=== PATIENT | male | born 1980 | race Caucasian/White ===

== ENCOUNTER 2017-01-20 18:21 | Emergency (ER) | payer MEDICAID, OTHER ==
[2017-01-20] MEDS ORDERED: CLINDAMYCIN PHOSPHATE 150 MG/ML VIAL IM ONE (20:00)
[2017-01-20] MEDS ORDERED: KETOROLAC TROMETHAMINE 60 MG/2 ML VIAL IM ONE ×2 (20:00→20:31)
--- OUTSIDE RECORDS SUMMARY | 2017-01-20 20:12 | XMS REPORT | Continuity of Care Document ---
:1980 Author Organization [facility] ([facility]) Address [address] [place] [address] Phone [phone] Care Team Providers Name Role Phone Provider, No-Primary Care Primary Care Provider Unavailable Source Comments This disclosure is being made pursuant to the Care Everywhere program, applicable federal and state laws, and may not contain all informaitonavailable regarding this patient.[facility] ([facility]) Active Allergies and Adverse Reactions Not on File Current Medications Not on file Active Problems Not on file Social History Tobacco Use Types Packs/Day Years Used Date Never Assessed Plan of Care Health Maintenance Due Date Last Done Comments Hepatitis B Vaccine (1 of 3 - Primary Series) 1978 Tdap Vaccine 1989 Lipid Disorder Screening 1996 MMR Vaccine 1996 Td Vaccine 1996 Influenza Vaccine: Seasonal (#1) 05/20/2016 Results from Last 3 Months Not on file
--- NOTE | 2017-01-20 20:20 | ERNOTE ---
ENT HPI Date of Service: 01/20/17 Time Seen by Provider: 01/20/17 19:53 Source: patient Exam Limitations: no limitations - Immun/Allergies/Home Medications Immunizations: IMMUNIZATION HX Immunizations Up to Date Yes History of Influenza Vaccine No Hx Pneumococcal Vaccination No Allergies/Adverse Reactions: Allergies Allergy/AdvReac Type Severity Reaction Status Date / Time No Known Allergies Allergy Verified 01/20/17 18:54 Home Medications: HOME MEDICATIONS Clindamycin HCl [Cleocin HCl] 300 mg PO Q6H #40 capsule 01/20/17 [Last Taken Unknown] Naproxen [Naprosyn] 500 mg PO BID PRN #60 tab 01/20/17 [Last Taken Unknown] - History of Present Illness Narrative: Pt. comes in with c/o L maxillary pain from cavities. Pt. states taht the pain developed 3 days ago and has been taking tylenol for the pain and it was tolerable with this until today when the pain became intollerable. Pt. denies any SOB, CP, NVD, numbness, tingling, sinus pain, and pressure. Review of Systems - Review of Systems Constitutional: Present: no symptoms reported. Absent: fever, chills, weakness , fatigue, malaise EYE: Present: no symptoms reported ENT: Present: other - L maxillary dental pain. Absent: nose pain, nose congestion, nasal drainage, sore throat Respiratory: Present: no symptoms reported. Absent: shortness of breath, cough , wheezing Cardiology: Present: no symptoms reported. Absent: chest pain, palpitations, edema Gastrointestinal/Abdominal: Present: no symptoms reported. Absent: nausea, vomiting, diarrhea Musculoskeletal: Present: no symptoms reported. Absent: back pain, joint pain Skin: Present: no symptoms reported Neurological: Present: no symptoms reported. Absent: headache, dizziness/light- headedness, numbness, tingling All Other Systems: All systems neg except as marked - Patient's Past Medical History Patient History - Medical: No pertinent hx Patient History - Cardiac/Respiratory: No pertinent hx Patient History - Cancer: No Hx of Cancer Patient History - Surgical Procedures: T & A, Other Patient History - Other: None - Social History Living Situations: home Abuse History: No History of abuse Psych History: No pertinent hx Smoking Status: Former smoker Alcohol Use: occasionally Drug Use: none - Immunizations Immunizations Up to Date: Yes Hx Pneumococcal Vaccination: No History of Influenza Vaccine: No Physical Exam - Physical Exam General Appearance: Present: wd/wn, alert, no apparent distress Eye Exam: Normal inspection: bilateral, PERRL: bilateral, EOMI: bilateral Ears, Nose, Throat: Present: normal ENT inspection, normal pharynx, other - L maxillary abscess above three teeth with caries into pulp Neck: Present: normal inspection, nontender. Absent: lymphadenopathy (R), lymphadenopathy (L) Respiratory: Present: no respiratory distress, normal breath sounds, no accessory muscle use, chest nontender, lungs clear Cardiovascular/Chest: Present: regular rate, rhythm, no murmur, normal peripheral pulses Gastrointestinal/Abdominal: Present: normal bowel sounds, nontender, nondistended, soft, no organomegaly Back Exam: Present: normal inspection, normal range of motion, no CVA tenderness , no vertebral tenderness Extremity Exam: Present: normal inspection, non-tender, normal range of motion, no edema Neurological Exam: Present: alert, oriented, normal mood/affect, no motor/ sensory deficits ED Progress - Vital Signs Patient's Vital Signs:: I have reviewed the patient's vital signs. Vital Signs: Vital Signs 01/20/17 18:51 Temperature 37.1 C Pulse Rate 102 H Respiratory 15 Rate Blood Pressure 134/99 O2 Sat by Pulse 95 Oximetry - Progress/Reassessment Chief Complaint: Dental Problem Departure Clinical Impression: Dental caries of root surface, Dental abscess - Departure Disposition: Home self-care Condition: Good Instructions: Dental Abscess, [id number] Additional Instructions: Please follow up with dental provider in 2-3 days. Prescriptions: Clindamycin HCl [Cleocin HCl] 300 mg PO Q6H #40 capsule Naproxen [Naprosyn] 500 mg PO BID PRN #60 tab PRN Reason: Pain
[2017-01-21 03:25] VITALS: BP 136/91
== END 2017-01-20 20:50 | disposition home or self-care (01) ==
LOC: ER 18:21
DX: K02.9 Dental caries, unspecified (principal); Z87.891 Personal history of nicotine dependence

== ENCOUNTER 2017-05-11 07:37 | Emergency (ER) | payer OTHER ==
[2017-05-11] MEDS ORDERED: KETOROLAC TROMETHAMINE 30 MG/ML VIAL IV ONE (07:51)
[2017-05-11] MEDS ORDERED: KETOROLAC TROMETHAMINE 30 MG/ML VIAL ONE (07:52)
[2017-05-11 08:05] LABS: Urine Bilirubin Negative (NEGATIVE); Urine Blood 250 /ul (NEGATIVE); Urine Ketone Negative (NEGATIVE); Urine Nitrite Negative (NEGATIVE); Urine Protein 15 mg/dL (NEGATIVE); Urine Specific Gravity 1.025 SP.GR. (1.005-1.030); Urine Urobilinogen Normal (NORMAL)
[2017-05-11] MEDS ORDERED: TAMSULOSIN HCL 0.4 MG CAP.SR.24H PO ONE ×2 (08:11→08:14)
[2017-05-11 08:12] LABS: Urine Appearance Slightly Cloudy; Urine Bacteria TRACE; Urine Color Dark Yellow; Urine Mucus Few - 1+; Urine RBC 25-50 /hpf (0-5); Urine Sperm TRACE; Urine WBC None Seen /hpf (0-5)
[2017-05-11 08:29] LABS: Hemoglobin 15.9 gm/dL (13.5-18.0); Mean Cell Volume 87.7 fl (78-100); Mean Corpuscular Hemoglobin 29.7 pg (27-31); Mean Corpuscular Hgb Conc 33.8 g/dl (32-36); Mean Platelet Volume 9.3 fl (6.0-9.5); Neutrophil # 3.9 K/mm3 (1.3-6.0); Neutrophil % 60.9 % (42-75.0); Platelet Count 345 K/mm3 (150-450); Red Blood Count 5.36 M/mm3 (4.7-6.0); Red Cell Distribution Width 12.2 % (11.5-14.0); White Blood Count 6.5 K/mm3 (4.0-10.5)
[2017-05-11 08:34] LABS: Anion Gap 11.4 mmol/L (6.8-13.8); BUN/Creatinine Ratio 7.2 (9.0-21.6); Calcium * 8.7 mg/dL (7.9-10.9); Carbon Dioxide 29.2 mmol/L (24-32.6); Potassium 3.6 mmol/L (3.4-4.6)
[2017-05-11 08:41] VITALS: BP 115/82
--- NOTE | 2017-05-11 09:11 | ERNOTE ---
Back Pain ER HPI Date of Service: 05/11/17 Time Seen by Provider: 05/11/17 08:01 Source: patient, family Exam Limitations: no limitations Immunizations: IMMUNIZATION HX Immunizations Up to Date Yes History of Influenza Vaccine No Hx Pneumococcal Vaccination No Allergies/Adverse Reactions: Allergies No Known Allergies Allergy (Verified 05/11/17 07:49) Home Medications: HOME MEDICATIONS HYDROcodone/ACETAMINOPHEN [[place] 5-325] 1 - 2 tab PO QID PRN #20 tab 05/11/17 [ Last Taken Unknown] Ondansetron [Zofran Odt] 4 mg PO BID PRN #10 tab.rapdis 05/11/17 [Last Taken Unknown] Tamsulosin HCl [Flomax] 0.4 mg PO BID #10 cap.sr.24h 05/11/17 [Last Taken Unknown] Narrative: Woke up this morning with the sudden onset of severe right CVA pain associated with retching. One dose of toradol has abolished the nausea and markedly reduced the pain. No prior. Timing: Reports: constant Quality/Severity: Reports: cramping Location of pain: Reports: no radiation Activities at Onset: Reports: sleep Recent Injury?: Reports: no Possible Precipitating Factor: Reports: none Modifying Factors - (Improves): Reports: nothing Modifying Factors - (Worsens): Reports: nothing Associated Symptoms: Reports: none Prior Treament: Denies: recently seen, treated by physician, recently hospitalized, similar symptoms before, currently on antibiotics Review of Systems - Review of Systems Constitutional: Present: no symptoms reported EYE: Present: no symptoms reported ENT: Present: no symptoms reported Respiratory: Present: no symptoms reported Cardiology: Present: no symptoms reported Gastrointestinal/Abdominal: Present: nausea, vomiting Genitourinary: Present: dysuria. Absent: hematuria Musculoskeletal: Present: no symptoms reported Skin: Present: no symptoms reported - Patient's Past Medical History Patient History - Medical: No pertinent hx Patient History - Cardiac/Respiratory: No pertinent hx Patient History - Cancer: No Hx of Cancer Patient History - Surgical Procedures: T & A, Hernia Repair Patient History - Other: None - Social History Living Situations: home Abuse History: No History of abuse Psych History: No pertinent hx Smoking Status: Former smoker Alcohol Use: occasionally Drug Use: none - Immunizations Immunizations Up to Date: Yes Hx Pneumococcal Vaccination: No History of Influenza Vaccine: No Physical Exam - Physical Exam General Appearance: Present: wd/wn, alert, mild distress Head Exam: Present: normal inspection Eye Exam: Normal inspection: bilateral, PERRL: bilateral, EOMI: bilateral Ears, Nose, Throat: Present: normal ENT inspection Neck: Present: normal inspection Respiratory: Present: no respiratory distress, normal breath sounds Cardiovascular/Chest: Present: regular rate, rhythm, no murmur Gastrointestinal/Abdominal: Present: normal bowel sounds, nontender, nondistended, soft, no organomegaly Male Genitals Exam: Present: normal genitalia Back Exam: Present: normal inspection, no vertebral tenderness, CVA tenderness ( R) Extremity Exam: Present: normal inspection, no edema Neurological Exam: Present: alert, oriented, normal mood/affect Skin Exam: Present: normal color, warm/dry ED Progress - Results and Orders Patient's Lab Results:: I have reviewed the patient's lab results. - Vital Signs Patient's Vital Signs:: I have reviewed the patient's vital signs. Vital Signs: Vital Signs 05/11/17 05/11/17 07:43 08:40 Temperature 35.3 C L Pulse Rate 88 79 Respiratory 16 12 Rate Blood Pressure 127/83 115/82 O2 Sat by Pulse 99 96 Oximetry - CT/Ultrasound CT/Ultrasound Narrative: 2 mm stone right ureter - Progress/Reassessment Chief Complaint: Back Pain Progress:: Improved Departure Clinical Impression: Renal colic on right side - Departure Disposition: Home self-care Condition: Good Instructions: Renal Colic, [id number] Additional Instructions: Strain all urine. If you get a stone, bring it to the ER. Follow up with a doctor in the clinic next week. Drink lots of liquids always. If you get much worse, return to the ER. Prescriptions: HYDROcodone/ACETAMINOPHEN [[place] 5-325] 1 - 2 tab PO QID PRN #20 tab PRN Reason: Pain Ondansetron [Zofran Odt] 4 mg PO BID PRN #10 tab.rapdis PRN Reason: nausea Tamsulosin HCl [Flomax] 0.4 mg PO BID #10 cap.sr.24h
== END 2017-05-11 09:42 | disposition home or self-care (01) ==
LOC: ER 07:37
DX: M54.9 Dorsalgia, unspecified (principal); N23 Unspecified renal colic; Z87.891 Personal history of nicotine dependence

== ENCOUNTER 2017-05-23 11:38 | Day surgery (SDC) | payer OTHER ==
[~2017-05-23 11:38] MED LIST: ACETAMINOPHEN WITH CODEINE 1 EACH TABLET PO PRN; MORPHINE SULFATE 2 MG/ML DISP.SYRIN IV PRN; ONDANSETRON HCL/PF 2 MG/ML VIAL IV PRN; ceFAZolin SODIUM 1 GM in DEXTROSE 5 % IN WATER 100 ML IV PRN; oxyCODONE HCL/ACETAMINOPHEN 1 TAB TABLET PO PRN
[2017-05-23] MEDS ORDERED: RINGER'S SOLUTION,LACTATED 1,000 ML IV ONE (12:19)
[2017-05-23 15:03] VITALS: BP 134/84
== END 2017-05-23 11:39 | disposition home or self-care (01) ==
LOC: AMB 11:38
PROVIDERS: ATTEND Urology
PROC: BT1DZZZ Fluoroscopy of Right Kidney, Ureter and Bladder (ICD-10-PCS; principal; 2017-05-23 12:30)
DX: N20.1 Calculus of ureter (principal); Z68.25 Body mass index [BMI] 25.0-25.9, adult; Z87.891 Personal history of nicotine dependence